=== PATIENT | male | born 1955 | race Two or more races ===

== ENCOUNTER 2018-12-07 21:32 | Emergency (ER) | payer SELFPAY ==
[~2018-12-07] VITALS: Ht 182.9 cm; Wt 99.8 kg
[2018-12-07 21:50] VITALS: BP 143/100
== END 2018-12-07 23:08 ==
LOC: ER 21:37
DX: S00.31XA Abrasion of nose, initial encounter (principal); G89.29 Other chronic pain; M54.9 Dorsalgia, unspecified; X58.XXXA Exposure to other specified factors, initial encounter; Y93.89 Activity, other specified; Y92.89 Other specified places as the place of occurrence of the external cause; Y99.8 Other external cause status

== ENCOUNTER 2019-04-10 19:50 | Emergency (ER) | payer MEDICARE ==
[~2019-04-10] VITALS: Ht 182.9 cm; Wt 90.7 kg
[2019-04-10 20:00] VITALS: BP 123/61
[2019-04-10] MEDS ORDERED: SODIUM CHLORIDE 0.9% 1,000 ML IVB ONE (20:08)
[2019-04-10] MEDS ORDERED: NALOXONE HCL 1MG/ML 2ML SYRINGE IV ONE (20:15)
[2019-04-10 20:54] LABS: Basophils # (auto) 0.1 uL; Basophils % (auto) 0.9 % (0.0-2.0); Eosinophils # (auto) 0.3 uL; Hematocrit 45.6 % (41.0-53.0); Hemoglobin 15.4 g/dL (13.5-17.5); Lymphocytes # (auto) 1.3 uL; Lymphocytes % (auto) 14.7 % (10.0-50.0); Mean Corpuscular Hemoglobin 32.9 pg (28.0-32.0); Mean Corpuscular Hgb Conc. 33.8 g/dL (32.0-36.0); Mean Corpuscular Volume 97.5 fL (80.0-100.0); Monocytes # (auto) 0.8 uL; Monocytes % (auto) 8.8 % (0.0-12.0); Neutrophils # (auto) 6.3 uL; Neutrophils % (auto) 72.6 % (37.0-80.0); Nucleated Red Blood Cells % 0.1 %; Platelet Count (auto) 234 10^3/uL (140-450); Red Blood Cells 4.68 10^6/uL (4.5-5.90); Red Cell Distribution Width 14.7 % (11.8-14.3); White Blood Cell 8.7 10^3/uL (4.4-10.8)
[2019-04-10 21:11] LABS: INR 1.02 (0.9-1.15); Partial Thromboplastin Time 24.8 sec (23.64-32.05)
[2019-04-10 21:14] LABS: Alanine Aminotransferase 20 U/L (16-61); Anion Gap 7 (5-15); Aspartate Aminotransferase 42 U/L (15-37); BUN/Creatinine Ratio 21.4; Blood Urea Nitrogen 21 mg/dL (7-18); Calcium 7.3 mg/dL (8.5-10.1); Carbon Dioxide 24 mmol/L (21-32); Chloride 112 mmol/L (98-107); GFR African American 99 mL/min; GFR Non-African American 82 mL/min; Glucose 92 mg/dL (74-106); Magnesium 2.2 mg/dL (1.6-2.6); Sodium 143 mmol/L (136-145)
[2019-04-10 21:17] LABS: Lactic Acid w/Reflex 2.2 mmol/L (0.4-2.0)
[2019-04-10 21:19] LABS: Alkaline Phosphatase 58 U/L (45-117); Bilirubin, Total 0.3 mg/dL (0.2-1.0)
[2019-04-10 21:42] LABS: Urine Bacteria NONE SEEN /hpf (None Seen); Urine Blood Negative /uL (Negative); Urine Mucus FEW (None Seen); Urine Specific Gravity 1.005 (1.001-1.035); Urine WBC 2 /hpf (0 - 3)
[2019-04-10 21:54] LABS: Amphetamine Screen, Urine NEGATIVE (NEGATIVE); Barbiturate Scree,Urine NEGATIVE (NEGATIVE); Benzodiazephine Screen, Urine POSITIVE (NEGATIVE); Cannabinoid Screen, Urine NEGATIVE (NEGATIVE); Cocaine Screen, Urine NEGATIVE (NEGATIVE); Opiate Scree,Urine NEGATIVE (NEGATIVE); Phencyclidine Screen, Urine NEGATIVE (NEGATIVE)
[2019-04-10] MEDS ORDERED: THIAMINE INJ 100 MG in SODIUM CHLORIDE 0.9% 1,000 ML IV ONE (22:30)
== END 2019-04-10 23:04 | disposition home or self-care (01) ==
LOC: EDBD 19:50 → ER 19:50
DX: F10.229 Alcohol dependence with intoxication, unspecified (principal); R41.82 Altered mental status, unspecified; F11.10 Opioid abuse, uncomplicated
CPT/HCPCS: 36415; 70450; 71250; 72125; 80053; 80307; 80320; 81001; 83605; 83735; 84484; 85025; 85379; 85610; 85730; 93005; 96360; 99284; J3411; J7030

== ENCOUNTER 2019-05-08 22:35 | Emergency (ER) | payer MEDICARE ==
[~2019-05-08] VITALS: Ht 188 cm; Wt 104.3 kg
[2019-05-08 23:06] LABS: Basophils # (auto) 0 uL; Basophils % (auto) 0.7 % (0.0-2.0); Eosinophils # (auto) 0.3 uL; Eosinophils % (auto) 3.7 % (0.0-7.0); Hematocrit 50.7 % (41.0-53.0); Hemoglobin 16.9 g/dL (13.5-17.5); Lymphocytes # (auto) 1.2 uL; Lymphocytes % (auto) 17.5 % (10.0-50.0); Mean Corpuscular Hemoglobin 32.7 pg (28.0-32.0); Mean Corpuscular Hgb Conc. 33.4 g/dL (32.0-36.0); Mean Corpuscular Volume 97.9 fL (80.0-100.0); Monocytes # (auto) 0.9 uL; Monocytes % (auto) 13.5 % (0.0-12.0); Neutrophils # (auto) 4.5 uL; Neutrophils % (auto) 64.6 % (37.0-80.0); Platelet Count (auto) 207 10^3/uL (140-450); Red Blood Cells 5.17 10^6/uL (4.5-5.90); Red Cell Distribution Width 15.8 % (11.8-14.3)
[2019-05-08 23:21] LABS: INR 1.01 (0.9-1.15); Partial Thromboplastin Time 25.8 sec (23.64-32.05)
[2019-05-08 23:25] LABS: Alanine Aminotransferase 32 U/L (16-61); Albumin 3.8 g/dL (3.4-5.0); Anion Gap 4 (5-15); Aspartate Aminotransferase 26 U/L (15-37); BUN/Creatinine Ratio 9.1; Blood Urea Nitrogen 10 mg/dL (7-18); Calcium 8.8 mg/dL (8.5-10.1); Carbon Dioxide 28 mmol/L (21-32); Chloride 110 mmol/L (98-107); GFR African American 86 mL/min; GFR Non-African American 71 mL/min; Glucose 98 mg/dL (74-106); Magnesium 2.4 mg/dL (1.6-2.6); Sodium 142 mmol/L (136-145)
[2019-05-08 23:30] LABS: Alkaline Phosphatase 72 U/L (45-117); Bilirubin, Total 0.4 mg/dL (0.2-1.0); Total Protein 8.5 g/dL (6.4-8.2)
[2019-05-09 03:11] VITALS: BP 150/99
== END 2019-05-09 03:33 | disposition short-term general hospital (02) ==
LOC: EDUNIT# 22:35 → EDBD 22:35 → ER 22:39
DX: S06.9X0A Unspecified intracranial injury without loss of consciousness, initial encounter (principal); Y04.8XXA Assault by other bodily force, initial encounter; Y93.89 Activity, other specified; Y92.488 Other paved roadways as the place of occurrence of the external cause; Y99.8 Other external cause status
CPT/HCPCS: 36415; 70450; 71045; 72125; 80053; 80320; 83735; 84484; 85025; 85610; 85730; 93005

== ENCOUNTER 2020-05-13 18:51 | Emergency (ER) | payer MEDICARE, BC ==
[~2020-05-13] VITALS: Ht 182.9 cm; Wt 68.0 kg
[2020-05-13 19:02] VITALS: BP 121/96
== END 2020-05-13 19:24 ==
LOC: ER 18:55
DX: H11.433 Conjunctival hyperemia, bilateral (principal); R56.9 Unspecified convulsions; F41.9 Anxiety disorder, unspecified; Z88.6 Allergy status to analgesic agent

== ENCOUNTER 2021-05-14 13:27 | Emergency (ER) | payer MEDICARE, BC ==
[~2021-05-14] VITALS: Ht 185.4 cm; Wt 95.3 kg
[2021-05-14] MEDS ORDERED: ETOMIDATE (2MG/ML) 20ML VIAL IV ONE ×2 (13:33→14:00)
[2021-05-14] MEDS ORDERED: SUCCINYLCHOLINE CHLORIDE 20 MG/ML 10ML VIAL IV ONE ×2 (13:34→14:00)
[2021-05-14] MEDS ORDERED: NALOXONE HCL 1MG/ML 2ML SYRINGE ONE (13:35)
[2021-05-14] MEDS ORDERED: MIDAZOLAM DRIP 50 mg/50mL 50 ML IV ONE (13:52)
[2021-05-14] MEDS ORDERED: MIDAZOLAM DRIP 50 mg/50mL 50 ML IV SCH (14:00)
[2021-05-14] MEDS ORDERED: NALOXONE HCL 1MG/ML 2ML SYRINGE IV ONE (14:00)
[2021-05-14 14:10] LABS: Basophils # (auto) 0.1 10 ^3/uL (0-0.2); Basophils % (auto) 0.5 % (0.0-2.0); Eosinophils # (auto) 0.3 10 ^3/uL (0-0.8); Eosinophils % (auto) 1.7 % (0.0-7.0); Hematocrit 51.7 % (41.0-53.0); Lymphocytes # (auto) 4.5 10 ^3/uL (0.4-5.4); Lymphocytes % (auto) 23.9 % (10.0-50.0); Mean Corpuscular Hemoglobin 32.3 pg (28.0-32.0); Mean Corpuscular Hgb Conc. 32.9 g/dL (32.0-36.0); Monocytes # (auto) 1.5 10 ^3/uL (0-1.3); Monocytes % (auto) 7.8 % (0.0-12.0); Neutrophils # (auto) 12.4 10 ^3/uL (1.6-8.6); Neutrophils % (auto) 66.1 % (37.0-80.0); Nucleated Red Blood Cells % 0.1 %; Red Blood Cells 5.28 10^6/uL (4.5-5.90); Red Cell Distribution Width 14.5 % (11.8-14.3); White Blood Cell 18.8 10^3/uL (4.4-10.8)
[2021-05-14] MEDS ORDERED: fentaNYL Drip 2500mCg/250mlNS 250 ML IV SCH (14:15)
[2021-05-14] MEDS ORDERED: fentaNYL Drip 2500mCg/250mlNS 250 ML IV ONE (14:15)
[2021-05-14 14:20] LABS: INR 1.09 (0.9-1.15)
[2021-05-14 14:30] LABS: Albumin 3.6 g/dL (3.4-5.0); Calcium 8.5 mg/dL (8.5-10.1); Potassium 4.3 mmol/L (3.5-5.1)
[2021-05-14] MEDS ORDERED: PROPOFOL 100 ML IV SCH (14:30)
[2021-05-14] MEDS ORDERED: SODIUM CHLORIDE 0.9% 1,000 ML IV ONE (14:30)
[2021-05-14] MEDS ORDERED: PROPOFOL 100 ML IV ONE (14:31)
[2021-05-14 14:33] LABS: Lactic Acid w/Reflex 4.5 mmol/L (0.4-2.0)
[2021-05-14 14:42] LABS: BUN/Creatinine Ratio 9.1; Bilirubin, Total 1.5 mg/dL (0.2-1.0); Total Protein 8.3 g/dL (6.4-8.2)
[2021-05-14] MEDS ORDERED: IOHEXOL 300 MG/ML 100ML BOTTLE IJ ONE (15:01)
[2021-05-14] MEDS ORDERED: LORazepam 2MG/ML-1ML VIAL IV ONE (15:15)
[2021-05-14] MEDS ORDERED: SODIUM CHLORIDE 0.9% 2,850 ML IV ONE (15:15)
[2021-05-14] MEDS ORDERED: cefTRIAXone 1GM/50ML D5W 50 ML IV ONE (15:15)
[2021-05-14] MEDS ORDERED: CLINDAMYCIN 300MG IV 50 ML IV ONE (15:15)
[2021-05-14 16:06] LABS: Urine Bacteria NONE SEEN /hpf (None Seen); Urine Blood TRACE /uL (Negative); Urine Hyaline Cast FEW /lpf (0 - 2); Urine WBC 2 /hpf (0 - 3)
[2021-05-14 16:18] LABS: Amphetamine Screen, Urine NEGATIVE (NEGATIVE); Benzodiazephine Screen, Urine POSITIVE (NEGATIVE); Cannabinoid Screen, Urine NEGATIVE (NEGATIVE); Cocaine Screen, Urine NEGATIVE (NEGATIVE); Opiate Scree,Urine NEGATIVE (NEGATIVE); Phencyclidine Screen, Urine NEGATIVE (NEGATIVE)
[2021-05-14 16:25] LABS: Barbiturate Scree,Urine NEGATIVE (NEGATIVE)
[2021-05-14 18:10] VITALS: BP 95/65
[2021-05-14 19:26] VITALS: BP 91/68
== END 2021-05-14 20:15 | disposition short-term general hospital (02) ==
LOC: EDBD 13:27 → ER 13:27
DX: G93.41 Metabolic encephalopathy (principal); J98.59 Other diseases of mediastinum, not elsewhere classified; Z88.5 Allergy status to narcotic agent; Z20.822 Contact with and (suspected) exposure to COVID-19
CPT/HCPCS: 31500; 36415; 70450; 70491; 71045; 71260; 74177; 80053; 80307; 80320; 81001; 83605; 83880; 84484; 85025; 85610; 85730; 87040; 87070; 87077; 87186; 87205; 87426; 93005; 96365; 96367; 96368; 96375; 99285; C9803; J0330; J0696; J2060; J2250; J2310; J2704; J3490; U0003; 94002